=== PATIENT | female | born 1990 | race African-American/Black ===

== ENCOUNTER 2019-08-14 12:12 | Outpatient (CLI) | payer OTHER ==
[~2019-08-14] VITALS: Ht 160 cm; Wt 71.8 kg
[2019-08-14 12:21] VITALS: BP 117/67
[2019-08-14] MEDS ORDERED: PRENTAB9 PO (12:23)
[2019-08-14] MEDS ORDERED: ACET1TAB55 PO (12:23)
== END 2019-08-14 13:00 | disposition home or self-care (01) ==
LOC: M LDO 12:12
PROVIDERS: ATTEND Obstetrics & Gynecology
DX: Z04.3 Encounter for examination and observation following other accident (principal); O99.89 Other specified diseases and conditions complicating pregnancy, childbirth and the puerperium; M25.552 Pain in left hip; X58.XXXA Exposure to other specified factors, initial encounter; Y92.89 Other specified places as the place of occurrence of the external cause; Y93.89 Activity, other specified; Y99.8 Other external cause status; Z3A.22 22 weeks gestation of pregnancy
CPT/HCPCS: G0378; G0463

== ENCOUNTER 2019-08-14 12:47 | Emergency (ER) | payer OTHER ==
[~2019-08-14] VITALS: Ht 160 cm; Wt 77.6 kg
[~2019-08-14 12:47] MED LIST: ACET1TAB55 PO; PRENTAB9 PO
--- NOTE | 2019-08-14 13:18 | HPE ---
DATE OF ADMISSION: 08/14/2019 This is a 28-year-old, 3, para 2, last menstrual period (LMP) 03/12/2019, expected date of confinement (EDC) 12/17/2019, at 22 weeks of gestation who fell on her left hip at 0600 hours this morning and had no contractions, no loss of fluid and no bleeding. She took 650 of Tylenol. Six hours later, she still had her left hip pain. She went to emergency, they brought her up here for monitoring. Risk factor is she had a history of TB therapy in 2003 and she has a history of subchorionic hemorrhage in this . Past History: In 10/2009, at 37 weeks, spontaneous vaginal delivery of a female, 6 pounds 12 ounces. In 2013, at 38 weeks, spontaneous vaginal delivery, female, 7 pounds 5 ounces. Labs: O positive. HIV negative. Hepatitis negative. RPR negative. Rubella immune. Varicella immune. Pap normal. Urine negative. Gonorrhea and chlamydia negative. Blood pressure 117/58, respirations 18, pulse 89, temperature 97.1. On examination, in no distress. She is favoring her left hip. She is able to walk, but it is painful. heart rate 138. No contractions. She is not bleeding. We discharged her back to emergency to evaluate her left hip. In summary, 22-week gestation with left hip pain secondary to a fall.
[2019-08-14 14:25] VITALS: BP 109/55
== END 2019-08-14 14:28 | disposition home or self-care (01) ==
LOC: M ED 12:47
DX: O9A.212 Injury, poisoning and certain other consequences of external causes complicating pregnancy, second trimester (principal); S70.02XA Contusion of left hip, initial encounter; W00.0XXA Fall on same level due to ice and snow, initial encounter; Y92.093 Driveway of other non-institutional residence as the place of occurrence of the external cause; Y93.01 Activity, walking, marching and hiking; Z3A.22 22 weeks gestation of pregnancy

== ENCOUNTER 2019-12-05 21:03 | Inpatient (IN) | payer OTHER ==
[2019-12-05] VITALS (10 sets, daily range): BP systolic 108–143; BP diastolic 54–90
[~2019-12-05] VITALS: Ht 160 cm; Wt 76.2 kg
[2019-12-05] MEDS ORDERED: LACTATED RINGER'S 1000 ML IV STA (21:45)
[2019-12-05] MEDS ORDERED: LR 1,000 ML IV SCH (21:45)
[2019-12-05] MEDS ORDERED: PENICILLIN G POTASSIUM IV 5 MU in D5W MINI-BAG PLUS 100 ML IV ONE (21:45)
[2019-12-05 22:02] LABS: HEMATOCRIT 36.4 % (36.0-47.0); HEMOGLOBIN 11.9 g/dl (12.0-15.5); MEAN CORPUSCULAR HEMOGLOBIN 31.3 pg (27.0-33.0); MEAN CORPUSCULAR HGB CONC 32.7 g/dl (32.0-36.5); MEAN CORPUSCULAR VOLUME 95.8 fl (80.0-96.0); PLATELET COUNT, AUTOMATED 288 10^3/uL (150-450); WHITE BLOOD COUNT 14.9 10^3/uL (4.0-10.0)
[2019-12-05] MEDS ORDERED: OXYTOCIN 30 UNITS IN 0.9% NaCl 500ML IV BAG (J2590) As Ordered ONE (22:12)
--- NOTE | 2019-12-05 22:59 | HPE ---
DATE OF ADMISSION: 12/05/2019 28-year-old 3, para 2, LMP 03/12/2019, EDC 12/17/2019 at 38 and 2 weeks of gestation, history of contractions times 4 hours, on admission found to be 6 cm, bulging membranes and GBS positive. PAST HISTORY 06/2010 at 37 weeks spontaneous vaginal delivery female, 6 pounds 12 ounces. December 2013 at 38 weeks spontaneous vaginal delivery female, 7 pounds 5 ounces. RISK FACTORS; She is GBS positive and a history of TB treated in 2003, has chronic left hip pain. LABS: O+, HIV negative, hep negative, RPR negative, rubella immune. Pap was normal. Urine was negative. Gonorrhea and chlamydia are negative. 1-hour glucose was 135. 3-hour GTT fasting 71, 1-hour 129, 2-hour 105 and 3-hour 89 and she is GBS positive vaginal, anal. PHYSICAL EXAMINATION: On examination distressed female. Symphysis fundus height is 38, vertex presenting. Category one strip, 6 cm, bulging membranes, -2 station. Blood pressure 117/67, respirations are 18, pulse 85, temperature is not available. SUMMARY: We have a term gestation, active labor. Anticipate vaginal delivery. IV hydration. The patient declined any pain management.
[2019-12-06] VITALS (12 sets, daily range): BP systolic 107–119; BP diastolic 58–73
[2019-12-06] MEDS ORDERED: PENICILLIN G POTASSIUM IV 2.5 MU in IV 1 EA IV SCH (02:00)
[2019-12-06 02:39] LABS: CORD GAS ABE A -5.4; CORD GAS HCO3 A 21.7 MEQ/L; CORD GAS O2 SAT A 53.4 %; CORD GAS PCO2 A 47.9 mmHg; CORD GAS PH A 7.273 UNITS; CORD GAS PO2 A 29.2 mmHg; CORD GAS TCO2 A 23.1 MEQ/L
[2019-12-06 02:40] LABS: CORD GAS ABE V -5.4; CORD GAS PCO2 V 34.1 mmHg; CORD GAS PH V 7.363 UNITS; CORD GAS PO2 V 33.9 mmHg; CORD GAS SBC V 19.4 MEQ/L
[2019-12-06] MEDS ORDERED: OXYTOCIN DRIP 30 UNITS in IV 1 EA IV SCH (02:46)
[2019-12-06] MEDS ORDERED: DOCUSATE SODIUM 100 MG CAP PO PRN (03:00)
[2019-12-06] MEDS ORDERED: METHYLERGONOVINE MALEATE 0.2 MG TAB PO PRN (03:00)
[2019-12-06] MEDS ORDERED: MEASLES,MUMPS,RUBELLA VACCINE INJ (MMR-II) (90707) SC SCH (03:00)
[2019-12-06] MEDS ORDERED: MOM 30ML SUSPENSION UDC PO PRN (03:00)
[2019-12-06] MEDS ORDERED: RHOGAM 300 MCG (1500 IU) INJ (J2790) IM SCH (03:00)
[2019-12-06] MEDS ORDERED: ANUSOL HC CREAM 30GM TOP PRN (03:00)
[2019-12-06] MEDS ORDERED: ACETAMINOPHEN TAB 650MG DOSE (2X325MG) PO PRN (03:00)
[2019-12-06] MEDS ORDERED: IBUPROFEN 600 MG TAB PO PRN (03:00)
[2019-12-06] MEDS ORDERED: DIBUCAINE 1% OINTMENT 30GM TOP PRN (03:00)
[2019-12-06] MEDS ORDERED: IBUPROFEN 800 MG TAB PO PRN (03:00)
--- NOTE | 2019-12-06 08:37 | DN ---
DATE: 12/06/2019 This lady is a 3, para 2 admitted in spontaneous labor at 38 and 2 weeks of gestation. She is GBS positive was treated prophylactically with penicillin in appropriate time interval. Had a spontaneous rupture of membranes at 6-7 cm at full dilatation. Spontaneous vaginal delivery of a live female weighing 6 pounds 9 ounces 2970 grams, of 9 and 9 at one and five minutes respectively. The cord times one loose around the neck. Arterial pH 7.27, base excess -5.4, venous pH 7.36, base excess -5.4. The placenta delivered spontaneously thereafter. Three-vessel cord membranes and tissues intact. Uterus contracted well under Pitocin. The patient and baby tolerating procedure well.
[2019-12-06] MEDS: PRENATAL VITAMINS CHEWABLE TABLET PO SCH (08:55)
[2019-12-06] MEDS: ACETAMINOPHEN 500 MG TAB PO PRN ×2 (08:56→15:50)
[2019-12-06] MEDS ORDERED: OXYTOCIN INJ 10 UNITS/ML VIAL (J2590) As Ordered ONE (12:34)
[2019-12-07 02:00] VITALS: BP 101/51
[2019-12-07 06:00] VITALS: BP 108/65
[2019-12-07 06:25] LABS: HEMATOCRIT 34.1 % (36.0-47.0); HEMOGLOBIN 11.2 g/dl (12.0-15.5); MEAN CORPUSCULAR HEMOGLOBIN 31.7 pg (27.0-33.0); MEAN CORPUSCULAR HGB CONC 32.8 g/dl (32.0-36.5); MEAN CORPUSCULAR VOLUME 96.6 fl (80.0-96.0); PLATELET COUNT, AUTOMATED 277 10^3/uL (150-450); RED BLOOD COUNT 3.53 10^6/uL (4.00-5.40); WHITE BLOOD COUNT 14.4 10^3/uL (4.0-10.0)
--- NOTE | 2019-12-07 09:08 | IPNPDOC ---
Progress Note Date of Service: Dec 07, 2019 Day#: 1 Progress Note SUBJECT: Patient is a 28-year-old 3 now Para 3 status post uncomplicated spontaneous vaginal delivery without post laceration and repair, doing well day # 1. She has been ambulating, voiding spontaneously without issue and tolerating regular diet. Breast feeding without issue. Reports lochia is less than a normal period. Patient is ambulating well. Reports some cramping with . Denies any pain. OBJECTIVE: VITAL SIGNS: Within normal limits, afebrile. Alert and oriented times three. Breast with mild tenderness at nipples without erythema or mass Breath sounds clear to auscultation. Heart rate: Regular rate and rhythm, no murmurs, rubs or gallops. Abdomen: Fundus firm at U-2. Soft, NTTP. Perineum intact and Minimal lochia. BLE nontender and without edema ASSESSMENT: Patient is a 28-year-old 3 now Para 3 status post uncomplicated spontaneous vaginal delivery without post laceration and repair, doing well day # 1. Vitals within normal limits, afebrile, hemod ynamically stable with no evidence of infection. PLAN: 1. Discharge to home today. 2. Tylenol for pain. 3. Encourage breast feeding/pumping (if cracked nipples) and ambulation. 4. Routine PP visit in 6 weeks in clinic. 5. Discussed return precautions at length. VS, I&O, 24H, Fishbone Vital Signs/I&O Vital Signs Date Time Temp Pulse Resp B/P (MAP) Pulse Ox O2 Delivery O2 Flow Rate FiO2 12/07/19 06:00 98.1 70 17 108/65 (79) 98 Room Air Laboratory Data 24H LABS Laboratory Tests 2 12/07/19 06:09: Nucleated Red Blood Cells % (auto) 0.0 CBC/BMP Laboratory Tests 12/07/19 06:09 Ely Rocha MD Dec 07, 2019 09:08
--- NOTE | 2019-12-07 09:11 | DS.PDOC ---
Discharge Summary General Date of Admission Dec 05, 2019 at 21:38 Date of Discharge 12/07/2019 Discharge Summary PROCEDURES PERFORMED DURING STAY: None. ADMITTING DIAGNOSES: 1. Term . 2. Active Labor DISCHARGE DIAGNOSES: 1. Term COMPLICATIONS/CHIEF COMPLAINT: Active Labor. HISTORY OF PRESENT ILLNESS: see H&P HOSPITAL COURSE: Patient admitted for active labor and had an uncomplicated . Bleeding like menses. Tolerating diet. Passing flatus. Able to ambulate. Pain tolerable with pain medications. Urinating without difficulty. DISCHARGE MEDICATIONS: Please see below. ALLERGIES: Please see below. PHYSICAL EXAMINATION ON DISCHARGE: VITAL SIGNS: Please see below. GENERAL: No acute distress HEENT: MMM BREAST: Nontender, no erythema CARDIOVASCULAR EXAMINATION: RRR RESPIRATORY EXAMINATION: Bilaterally clear ABDOMINAL EXAMINATION: Soft, appropriate tenderness, nondistended, fundus -2 EXTREMITIES: no edema, nontender WOUND: Dressing clean and intact LABORATORY DATA: Please see below. IMAGING: none PROGNOSIS: Good ACTIVITY: Pelvic rest. DIET: Regular DISCHARGE PLAN: Home DISPOSITION: . DISCHARGE INSTRUCTIONS: 1. See attached. ITEMS TO FOLLOWUP ON ON OUTPATIENT: 1. 6wks in clinic. DISCHARGE CONDITION: Stable. TIME SPENT ON DISCHARGE: Greater than 10 minutes. Vital Signs/I&Os Vital Signs Date Time Temp Pulse Resp B/P (MAP) Pulse Ox O2 Delivery O2 Flow Rate FiO2 12/07/19 06:00 98.1 70 17 108/65 (79) 98 Room Air Laboratory Data Labs 24H Laboratory Tests 2 12/07/19 06:09: Nucleated Red Blood Cells % (auto) 0.0 CBC/BMP Laboratory Tests 12/07/19 06:09 Allergies Coded Allergies: No Known Allergies (Verified Allergy, Unknown, 08/14/19) Ely Rocha MD Dec 07, 2019 09:11
[2019-12-07] MEDS ORDERED: DIBU10OI TOP (09:13)
[2019-12-07] MEDS ORDERED: ACET-683 PO (09:13)
[2019-12-07] MEDS ORDERED: PROC1CRE5 TOP (09:13)
[2019-12-07] MEDS ORDERED: DOCU100C16 PO (09:13)
[2019-12-07] MEDS: PRENATAL VITAMINS CHEWABLE TABLET PO SCH (09:30)
== END 2019-12-07 11:00 | disposition home or self-care (01) | DRG 807 ==
LOC: M LDO 21:03 → M LDI 21:38 → M OBS 12-06 04:17
PROVIDERS: ADMIT Obstetrics & Gynecology; ATTEND Obstetrics & Gynecology
PROC: 10E0XZZ Delivery of Products of Conception, External Approach (ICD-10-PCS; principal; 2019-12-06)
DX: O99.824 Streptococcus B carrier state complicating childbirth (principal); Z37.0 Single live birth; Z3A.38 38 weeks gestation of pregnancy; O69.81X0 Labor and delivery complicated by cord around neck, without compression, not applicable or unspecified